=== PATIENT | male | born 1955 | race Caucasian/White ===

== ENCOUNTER → 2022-04-13 | Outpatient (CLI) | payer MEDICARE, SELFPAY ==
[2022-04-13 12:19] LABS: Absolute Lymphocyte Count 2.42 X10^3/uL (0.83-4.51); Absolute Neutrophil Count 5.7 X10^3/uL (2.0-7.7); Basophil# 0.06 X10^3/uL; Basophil% 0.6 % (0-1); Eosinophil# 0.55 X10^3/uL; Eosinophils% 5.6 % (0-5); Hematocrit 46.6 % (40-54); Hemoglobin 15.3 g/dL (13.0-16.5); Lymphocyte # 2.42 X10^3/ul (0.83-4.51); Lymphocyte % 24.6 % (19-41); Mean Corp Hgb Conc 32.8 g/dL (32-36); Mean Corpuscular Hgb 29.6 pg (27.0-32.0); Mean Corpuscular Volume 90.1 fL (80-94); Monocyte# 0.99 X10^3/uL; Monocyte% 10.1 % (0-10); NRBC Flagged by Analyzer 0 % (0-5); Neutrophil # 5.72 X10^3/uL (2.7-7.7); Neutrophil % 58.1 % (47-70); Platelet Count 192 K/mm3 (150-450); RBC Distribution Width CV 12.9 % (11.6-14.6); RBC Distribution Width SD 42.6 fl (35.1-43.9); Red Blood Count 5.17 M/mm3 (4.6-6.2); White Blood Count 9.8 K/mm3 (4.4-11.0)
[2022-04-13 13:34] LABS: ALB/GLOB Ratio 0.9 RATIO (0.9-2.4); AST(SGOT) 28 U/L (15-37); Alanine Aminotransfer ALT/SGPT 45 U/L (16-61); Albumin, Serum 3.7 g/dL (3.2-5.0); Alkaline Phosphatase 73 U/L (45-117); Anion Gap 7 (5-15); BUN 16 mg/dL (7-18); BUN/Creat Ratio 23.6 RATIO (10-20); Calcium,Total 9.7 mg/dL (8.5-10.1); Chloride 105 mmol/L (98-107); Creatinine, Serum 0.68 mg/dL (0.70-1.30); EST Glomerular Filtration Rate 125 mL/min (>60); Est Glom Filt Rate - Afr Amer 151 mL/min (>60); Glucose 130 mg/dL (74-106); Potassium 4.3 mmol/L (3.5-5.1); Protein, Total 7.7 g/dL (6.4-8.2); Sodium Level 140 mmol/L (136-145)
[2022-04-15 20:07] LABS: Red Blood Cell Count Test/G6PD 5.25 x10E6/uL (4.14-5.80)
[2022-04-16 15:33] LABS: G6PD Quant Test 313 (127-427)
== END | disposition home or self-care (01) ==
LOC: MTLAB 10:56
PROVIDERS: PCP Internal Medicine; Referring Provider Internal Medicine Rheumatology; Visit Provider Internal Medicine Rheumatology
DX: L40.59 Other psoriatic arthropathy (principal); E11.9 Type 2 diabetes mellitus without complications; L40.8 Other psoriasis; M17.0 Bilateral primary osteoarthritis of knee; I10 Essential (primary) hypertension; E78.5 Hyperlipidemia, unspecified; K76.0 Fatty (change of) liver, not elsewhere classified; Z79.899 Other long term (current) drug therapy
CPT/HCPCS: 36415; 80053; 82955; 85025

== ENCOUNTER → 2024-02-08 | Outpatient (CLI) | payer MEDICARE, SELFPAY ==
--- NOTE | 2024-02-08 14:47 | NEURO ---
NCS and/or EMG Patient Report Ordering Doctor: Francisco Aaron DATE OF SERVICE: 02/08/24 Juan A presents numbness and tingling in both hands. He has a history of carpal tunnel release several years ago. Electrodiagnostic findings: Right median motor nerve demonstrates prolonged latency with reduced amplitude and reduced conduction velocity. Absent left median motor response. Ulnar motor response is within normal limits bilaterally. Median sensory response is normal bilaterally. Normal ulnar and radial sensory responses. Needle EMG testing was performed the upper limbs. All muscles tested showed no evidence of denervation with normal motor unit action potentials Electrodiagnostic impression: This is an abnormal study 1. Electrodiagnostic findings suggestive of bilateral median mononeuropathy. This is consistent with a severe, recurrent bilateral carpal tunnel syndrome. 2. No electrodiagnostic evidence is noted for cervical radiculopathy. 3. There is no electrodiagnostic for evidence for ulnar neuropathy, including cubital tunnel syndrome. Multi Select Codes Neurology Neurology Interp Codes: 06353-65 Musc test done w/n test comp (interp) (2) and 79087-44 Nrv cndj test 9-10 studies (interp)
== END | disposition home or self-care (01) ==
LOC: PSN 13:25
PROVIDERS: PCP Internal Medicine; Referring Provider Student in an Organized Health Care Education/Training Program; Visit Provider Student in an Organized Health Care Education/Training Program
DX: G56.03 Carpal tunnel syndrome, bilateral upper limbs (principal)
CPT/HCPCS: 95886; 95911